=== PATIENT | male | born 1990 | race Caucasian/White ===

== ENCOUNTER 2018-11-27 17:22 | Inpatient (IN) ==
[2018-11-27] MEDS ORDERED: NICODERM PATCH TD PRN (17:28)
[2018-11-27] MEDS ORDERED: ZOFRAN IM PRN (17:28)
[2018-11-27] MEDS ORDERED: TYLENOL PO PRN (17:28)
[2018-11-27] MEDS ORDERED: MAALOX PLUS LIQUID PO PRN (17:28)
[2018-11-27] MEDS ORDERED: PHENOBARBITAL IV PRN (17:28)
[2018-11-27] MEDS ORDERED: NICOTINE GUM BUCCAL PRN (17:28)
[2018-11-27] MEDS ORDERED: SENOKOT PO PRN (17:28)
[2018-11-27] MEDS ORDERED: DULCOLAX PR PRN (17:28)
[2018-11-27] MEDS ORDERED: TUBERSOL ID ONE (17:28)
[2018-11-27] MEDS ORDERED: IMODIUM PO PRN ×2 (17:28)
[2018-11-27] MEDS ORDERED: DESYREL PO PRN (17:28)
[2018-11-27] MEDS ORDERED: D5W 1,000 ML IV PRN (17:28)
[2018-11-27 17:56] LABS: HEMATOCRIT 35.2 % (42.0-52.0); HEMOGLOBIN 12.2 g/dL (14.0-18.0); MCHC 34.7 g/dL (33-37); MCV 83.8 FL (81-99); MPV 9.8 FL (7.4-10.4); RBC 4.2 XMIL (4.7-6.1); RDW 12.3 % (11.5-14.5); WBC 5.87 X1000 (4.8-10.8)
[2018-11-27] MEDS ORDERED: SINEMET 25/100 PO PRN (18:07)
[2018-11-27] MEDS ORDERED: ATARAX PO PRN (18:07)
[2018-11-27] MEDS ORDERED: BENTYL PO PRN (18:07)
[2018-11-27 18:11] LABS: INR 1.01; PROTIME 13.8 Seconds (11.0-16.0)
[2018-11-27 18:14] LABS: AMYLASE 75 U/L (20-200); LIPASE 15 U/L (13-60)
[2018-11-27 18:18] LABS: AGAP 11; ALBUMIN 4.2 g/dL (3.5-5.0); ALKALINE PHOSPHATASE 71 U/L (32-122); BUN 11 mg/dL (8-22); CALCIUM 8.8 mg/dL (8.8-10.2); CHLORIDE 96 mmol/L (98-107); COSMO 271; CREATININE 0.6 mg/dL (0.7-1.2); ESTIMATED GFR > 60; GLUCOSE 93 mg/dL (70-104); GOT 13 U/L (10-34); GPT 9 U/L (10-44); POTASSIUM 4.3 mmol/L (3.5-5.1); SODIUM 136 mmol/L (136-145); TCO2 29 mmol/L (25-35); TOTAL PROTEIN 7.3 g/dL (6.3-8.3)
[2018-11-27] MEDS: ZOFRAN IV PRN (18:31)
[2018-11-27] MEDS: ROBAXIN PO PRN (18:31)
[2018-11-27] MEDS: LIBRIUM PO PRN ×2 (18:31→22:28)
[2018-11-27 19:32] LABS: URINE SOURCE VOIDED
[2018-11-27 19:36] LABS: UR AMPHETAMINES QUAL NONE DETECTED (NONE DETECT); UR BARBITUATES QUAL NONE DETECTED (NONE DETECT); UR BENZODIAZEPIN QUAL PRESUMPTIVE POSITIVE (NONE DETECT); UR CANNABINOIDS QUAL NONE DETECTED (NONE DETECT); UR COCAINE QUAL NONE DETECTED (NONE DETECT); UR METHADONE QUAL NONE DETECTED (NONE DETECT); UR METHAMPHETAMINE QUAL NONE DETECTED (NONE DETECT); UR OPIATES QUAL NONE DETECTED (NONE DETECT); UR OXYCODONE QUAL NONE DETECTED (NONE DETECT); UR PCP QUAL NONE DETECTED (NONE DETECT); UR PROPOXYPHENE QUAL NONE DETECTED (NONE DETECT); UR TCA QUAL NONE DETECTED (NONE DETECT)
[2018-11-27 19:39] LABS: BILIRUBIN URINE NEGATIVE (NEGATIVE); BLOOD URINE NEGATIVE (NEGATIVE); GLUCOSE URINE NEGATIVE (NEGATIVE); KETONE URINE TRACE mg/dL (NEGATIVE); PH URINE 6.5
[2018-11-27 19:40] LABS: CLARITY CLEAR (CLEAR); COLOR YELLOW; LEUKOCYTES URINE TRACE (NEGATIVE); NITRITE URINE NEGATIVE (NEGATIVE); PROTEIN URINE NEGATIVE (NEGATIVE); UROBILINOGEN URINE NORMAL
--- NOTE | 2018-11-27 19:41 | HISTORY AND PHYSICAL ---
CHIEF COMPLAINT: Nausea and vomiting. HISTORY OF PRESENT ILLNESS: The patient is a 28-year-old male who presented to the hospital with nausea, vomiting, abdominal pain, myalgias, paresthesias, and paroxysmal sweating. The patient notes he has been on Suboxone and been doing well actually for the past 3 years. He has not been weaning down. He is undergoing a divorce. He has moved from [place] back to [place]. Unfortunately during the move, he was not able to find a provider to continue taking Suboxone, and therefore has been out. Since being out, he started to go into withdrawal symptoms and has been abusing heroin to alleviate said symptoms. SOCIAL HISTORY: Patient is getting . He is unemployed. Lives at home in [place]. PAST MEDICAL HISTORY: Asthma as a child. No current active medical problems. ALLERGIES: None. MEDICATIONS: None. REVIEW OF SYSTEMS: CINA score is 27 secondary to nausea, vomiting, dry heaves, frequent panic attacks, paresthesias, paroxysmal sweating, diarrhea, and abdominal cramping. Denies any fevers, but has been having cold shaking chills at times. He is unable to sit still, frequently moving about. Denies any chest pain, palpitations. Denies headaches, blurred vision, change in vision. Denies any focalized numbness, tingling, weakness in extremities. SUBSTANCE ABUSE HISTORY: The patient was in [facility] in 2010. Relapsed almost immediately. Was in [facility] in 2012. Remained sober for approximately 11 months and then relapsed. He was in [facility] in 2016. He stayed on Suboxone for 3 years, which is the longest period of sobriety that he has had. Unfortunately as noted above, he has been out of Suboxone and therefore has relapsed. Started alcohol at 14. Currently rarely drinks. Started marijuana at 17. Rarely uses. Started depressants at 22. Has not used any with regularity. Started meth at 25, and only use 4 or 5 times in his lifetime. Tried hallucinogens once. Started opiates at 17. Has been sober as noted on Suboxone until recently. Since that time, he has been abusing heroin. Started smoking at 17 and currently smokes half a pack a day. FAMILY HISTORY: Noncontributory. PHYSICAL EXAMINATION: VITAL SIGNS: Reviewed, stable. The patient is awake, alert, and oriented. He is in no current respiratory distress. He is very pleasant to talk with but is somewhat ill-appearing due to withdrawal symptoms. He is frequently moving about and is fidgeting. HEENT: Normocephalic. NECK: Supple. CARDIOVASCULAR: Regular rate. No murmurs. CHEST: Clear, nonlabored. ABDOMEN: Soft, nondistended, nontender. EXTREMITIES: Moves all extremities. NEUROLOGIC: No focal changes. SKIN: Warm, dry. No rashes. ASSESSMENT: 1. Abdominal pain. 2. Myalgias. 3. Paresthesias. 4. Paroxysmal sweating. 5. Opiate abuse withdrawal and stabilization. PLAN: We will continue patient in the hospital. We will place him on Suboxone, begin counseling. Discussed with patient that we will attempt to wean him down; however, if he begins to have worsening thoughts of use and abuse, then we will need to stabilize him and discharge home on Suboxone. cc: Ankit Sheikh MD
[2018-11-27] MEDS: SEROQUEL PO PRN (22:28)
[2018-11-28] MEDS: SUBOXONE 2 MG/0.5 MG FILM SL SCH ×2 (06:36→18:09)
[2018-11-28] MEDS: PROTONIX PO SCH (06:36)
[2018-11-28] MEDS: ROBAXIN PO PRN ×2 (08:24→16:34)
[2018-11-28] MEDS: LIBRIUM PO PRN ×4 (08:24→21:44)
[2018-11-28] MEDS: THERA M PLUS PO SCH (08:24)
[2018-11-28] MEDS: ZOFRAN IV PRN ×2 (08:25→16:34)
[2018-11-28] MEDS: VITAMIN B-1 PO SCH (08:25)
[2018-11-28] MEDS: FOLIC ACID PO SCH (08:25)
[2018-11-28] MEDS ORDERED: SUBUTEX SL ONE (08:34)
[2018-11-28] MEDS: MOTRIN PO PRN ×2 (12:25→21:44)
--- NOTE | 2018-11-28 21:36 | PROGRESS NOTE ---
DATE: 11/28/2018 SUBJECTIVE: Patient notes that he is feeling okay. Does not think that the Suboxone is enough. He does not think it is making any worse though. PHYSICAL EXAMINATION: Vital Signs: Reviewed. Temp 97.9 degrees, pulse 76, respiratory 18, BP stable. General: Patient is awake, alert. He is in no current respiratory distress. Pleasant to talk with. HEENT: Normocephalic. Neck: Supple. Cardiovascular: Regular rate. No murmurs. Chest: Clear, nonlabored. Abdomen: Soft, nondistended, nontender. Extremities: Moves all extremities. ASSESSMENT: 1. Nausea, vomiting, abdominal pain. 2. Myalgias. 3. Paresthesias. 4. Paroxysmal sweating. 5. Opiate abuse withdrawal and stabilization. PLAN: We will continue patient in the hospital. We will give him 1 dose of Subutex today and see how this helps. If it is better, we will switch him to Subutex. We will continue to follow. Continue counseling. cc: Ankit Sheikh MD
[2018-11-28] MEDS: SEROQUEL PO PRN (21:44)
[2018-11-29] MEDS: ROBAXIN PO PRN ×3 (01:26→17:54)
[2018-11-29] MEDS: ZOFRAN IV PRN ×3 (01:26→17:59)
[2018-11-29] MEDS: PROTONIX PO SCH (06:21)
[2018-11-29] MEDS: SUBOXONE 2 MG/0.5 MG FILM SL SCH (06:22)
[2018-11-29] MEDS: LIBRIUM PO PRN ×4 (08:33→22:29)
[2018-11-29] MEDS: MOTRIN PO PRN ×2 (08:33→17:54)
[2018-11-29] MEDS: FOLIC ACID PO SCH (08:33)
[2018-11-29] MEDS: VITAMIN B-1 PO SCH (08:33)
[2018-11-29] MEDS: THERA M PLUS PO SCH (08:33)
[2018-11-29] MEDS ORDERED: SUBUTEX SL SCH (11:45)
[2018-11-29] MEDS ORDERED: SUBUTEX SL ONE (13:15)
[2018-11-29] MEDS: SEROQUEL PO PRN (21:44)
[2018-11-29] MEDS: SUBUTEX SL SCH (21:44)
[2018-11-30] MEDS: PROTONIX PO SCH (06:24)
[2018-11-30] MEDS: SUBUTEX SL SCH ×3 (06:24→21:32)
--- NOTE | 2018-11-30 07:20 | PROGRESS NOTE ---
DATE: 11/30/2018 SUBJECTIVE: The patient notes that he still feels terrible. Unsure if the Suboxone is making him feel worse. Still having muscle aches, sweating. PHYSICAL EXAMINATION: Vital Signs: Reviewed and stable. General: He is awake, alert. He is in no distress otherwise. HEENT: Normocephalic. Neck: Supple. Cardiovascular: Regular rate. No murmurs chest clear nonlabored. Abdomen: Soft, nondistended. Extremities: He moves all extremities. ASSESSMENT: 1. Nausea and vomiting. 2. Abdominal pain. 3. Paresthesias. 4. Paroxysmal sweating. 5. Continued opiate withdrawal. PLAN: We will switch him from Suboxone to Subutex. It appears though he may have had fentanyl in his heroin, which would be precipitated by Suboxone. We will continue to follow. cc: Ankit Sheikh MD MTDD
[2018-11-30] MEDS: VITAMIN B-1 PO SCH (08:09)
[2018-11-30] MEDS: THERA M PLUS PO SCH (08:09)
[2018-11-30] MEDS: FOLIC ACID PO SCH (08:10)
[2018-11-30] MEDS: ZOFRAN IV PRN ×2 (08:23→21:31)
[2018-11-30] MEDS: LIBRIUM PO PRN ×4 (08:23→21:31)
[2018-11-30] MEDS: ROBAXIN PO PRN ×3 (08:24→21:31)
[2018-11-30] MEDS: MOTRIN PO PRN ×2 (08:24→16:24)
[2018-11-30] MEDS: ZOFRAN ODT PO PRN (16:24)
[2018-11-30] MEDS: SEROQUEL PO PRN (21:31)
[2018-12-01] MEDS: PROTONIX PO SCH (06:40)
[2018-12-01] MEDS: SUBUTEX SL SCH ×3 (06:41→22:03)
[2018-12-01] MEDS: FOLIC ACID PO SCH (08:43)
[2018-12-01] MEDS: THERA M PLUS PO SCH (08:43)
[2018-12-01] MEDS: ROBAXIN PO PRN ×2 (08:43→22:03)
[2018-12-01] MEDS: LIBRIUM PO PRN ×3 (08:43→22:03)
[2018-12-01] MEDS: VITAMIN B-1 PO SCH (08:43)
[2018-12-01] MEDS: MOTRIN PO PRN ×2 (08:43→22:03)
[2018-12-01] MEDS: ZOFRAN IV PRN (08:44)
--- NOTE | 2018-12-01 08:51 | PROGRESS NOTE ---
DATE: 11/30/2018 SUBJECTIVE: The patient notes that the Subutex made him feel a lot better. His withdrawal symptoms have improved. He is no longer having nausea or vomiting. His abdominal pain have resolved. His sweating and tremors have all but resolved. PHYSICAL EXAMINATION: Vital Signs: Reviewed. Temperature 97.8 degrees, pulse 82, respiratory 18, blood pressure 110/85. General: Patient is awake, alert, currently in no distress. His color is much improved. He is no longer sweating. He is able to have a full conversation. HEENT: Normocephalic. Neck: Supple. Cardiovascular: Regular rate. No murmurs. Chest: Clear, nonlabored. Abdomen: Soft, nondistended. Extremities: Moves all extremities. Neurologic: No changes. ASSESSMENT: 1. Nausea and vomiting. 2. Abdominal pain. 3. Myalgias. 4. Tremors. 5. Paresthesias. 6. Paroxysmal sweating. 7. Opiate abuse withdrawal and stabilization from most likely carfentanil. PLAN: We will continue Subutex. He needs to stay off Suboxone for at least 30 to 60 days to allow all the carfentanil to get out of his system. We will continue to follow. We will begin attempting to adjust his Subutex dosing tomorrow. cc: Ankit Sheikh MD
--- NOTE | 2018-12-01 21:49 | PROGRESS NOTE ---
DATE: 12/01/2018 SUBJECTIVE: Patient notes that overall he is starting to feel a little bit better. PHYSICAL EXAMINATION: Vital Signs: Temperature 97.7 degrees, pulse 80, respiratory 20, BP 102/62. General: Patient is awake, alert, currently in no distress. HEENT: Normocephalic. Neck: Supple. Cardiovascular: Regular rate. Chest: Clear. Abdomen: Soft, nondistended. Extremities: Moves all extremities. ASSESSMENT: 1. Nausea, vomiting. 2. Abdominal pain. 3. Myalgias. 4. Paresthesias. 5. Paroxysmal sweating. 6. Opiate abuse, withdrawal and stabilization. PLAN: Overall, patient is improving. We will continue the 4 mg 3 times a day today. Hopefully, he will be able to discharge home tomorrow if he remains stable. cc: Ankit Sheikh MD
[2018-12-01] MEDS: ZOFRAN ODT PO PRN (22:02)
[2018-12-01] MEDS: SEROQUEL PO PRN (22:03)
[2018-12-02] MEDS: SUBUTEX SL SCH (06:07)
[2018-12-02] MEDS: PROTONIX PO SCH (06:07)
[2018-12-02 07:52] VITALS: BP 115/75
[2018-12-02] MEDS: FOLIC ACID PO SCH (10:00)
[2018-12-02] MEDS: THERA M PLUS PO SCH (10:00)
[2018-12-02] MEDS: VITAMIN B-1 PO SCH (10:00)
--- NOTE | 2018-12-02 15:34 | DISCHARGE SUMMARY ---
ADMISSION DATE: 11/27/2018 DISCHARGE DATE: 12/02/2018 DISCHARGE DIAGNOSES: 1. Nausea and vomiting. 2. Abdominal pain. 3. Myalgias. 4. Paresthesias. 5. Paroxysmal sweating. 6. Opiate abuse, withdrawal, and stabilization. CONSULTATIONS: None. PROCEDURES: None. BRIEF HOSPITAL COURSE: The patient is a 28-year-old female who presented to [facility] program secondary to nausea, vomiting, abdominal pain, tremors, myalgias. The patient notes he has been abusing IV heroin. He has been attempting to stop but his withdrawal symptoms become too severe. The patient was admitted to the hospital, placed on Suboxone, and then subsequently switched to Subutex as he apparently has had carfentanil in his heroin and his Suboxone made him worse and precipitated his withdrawal. His Subutex was increased to 4 three times a day. After which time, his withdrawal symptoms of paresthesias, sweating, and tremors began to improve. On discharge he is awake, alert. He is in no distress. Overall he is feeling much better. DISPOSITION: Patient will be discharged home. Discussed with him that he needs to avoid all persons, places, situations which he has been using and abusing in the past. He needs outpatient life counseling as well as drug counseling. He will continue Subutex for at least a month to prevent his withdrawal. Discussed with him how to wean down Subutex to hopefully 4 mg twice a day instead of three times a day. cc: Ankit Sheikh MD
== END 2018-12-02 12:05 | disposition home or self-care (01) | DRG 897 ==
LOC: P.MEDSURG 17:22
PROVIDERS: ADMIT Family Medicine; ATTEND Family Medicine
CPT/HCPCS: 80053; 80104; 80301; 80305; 80307; 80320; 82055; 82150; 83690; 85027; 85610; 86580; A9270; G0431; G0434; G0477; G0480; G6040; J2405

== ENCOUNTER 2019-06-01 18:55 | Inpatient (IN) ==
[2019-06-01] MEDS ORDERED: CLINDAMYCIN 600 MG/D5W 600 MG/50 ML IVPB IV ONE (19:28)
[2019-06-01 20:15] LABS: AGAP 11; ALB/GLOB RATIO 1.3; ALBUMIN 4.1 g/dL (3.5-5.0); ALKALINE PHOSPHATASE 89 U/L (32-122); BUN 11 mg/dL (8-22); CALCIUM 9.2 mg/dL (8.8-10.2); CHLORIDE 101 mmol/L (98-107); COSMO 274; CREATININE 0.8 mg/dL (0.7-1.2); ESTIMATED GFR > 60; GLUCOSE 108 mg/dL (70-104); GOT 14 U/L (10-34); GPT 16 U/L (10-44); POTASSIUM 4.8 mmol/L (3.5-5.1); SODIUM 137 mmol/L (136-145); TCO2 25 mmol/L (25-35); TOTAL BILIRUBIN < 0.15 mg/dL (0.20-1.00); TOTAL PROTEIN 7.2 g/dL (6.3-8.3)
[2019-06-01] MEDS ORDERED: TORADOL IV ONE (20:20)
--- NOTE | 2019-06-01 20:23 | PROVIDER DOCUMENTATION ---
HPI-Rash/Wound/ReCheck - General Chief Complaint: Abscess Stated Complaint: RECHECK ABCESS/WORSE Time Seen by Provider: 06/01/19 19:11 Source: patient Allergies/Adverse Reactions: Allergies Allergy/AdvReac Type Severity Reaction Status Date / Time No Known Allergies Allergy Verified 06/01/19 19:55 Home Medications: Home Medication List Medication Instructions Recorded Confirmed Last Taken Type Ibuprofen [Motrin] 600 mg PO Q6-8H PRN PRN #30 tab 05/30/19 06/01/19 06/01/19 06:00 Rx Sulfamethoxazole/Trimethoprim 2 ea PO BID #40 tab 05/30/19 06/01/19 06/01/19 Rx [Bactrim Ds Tablet] - History of Present Illness-Dermatology Nature of Presenting Problem: Patient is a 29 yowm who complains of an abscess to right AC region. States he was here on and began taking Bactrim but the pain and erythema has worsened and erythema is no spreading down forearm. Denies fever or any other complaints. Pt non-toxic in appearance. Review of Systems - Adult - REVIEW OF SYSTEMS - ADULT Constitutional: reports: no symptoms reported Eyes: reports: no symptoms reported Ears, Nose, Mouth & Throat: reports: no symptoms reported Cardiovascular: reports: no symptoms reported Respiratory: reports: no symptoms reported Gastrointestinal: reports: no symptoms reported Genitourinary: reports: no symptoms reported Musculoskeletal: reports: no symptoms reported Integumentary: reports: see HPI Neurological: reports: no symptoms reported Psychiatric: reports: no symptoms reported Endocrine: reports: no symptoms reported Hematologic/Lymphatic: reports: no symptoms reported Allergic/Immunologic: reports: no symptoms reported All Other Systems: Reviewed and Negative Past History - Adult - PAST MEDICAL HISTORY-ADULT Review of Records: reports: Nursing Assessment Review, Medications Reviewed, Social history reviewed & non-contributory. Major Childhood Illnesses: reports: denies history Cardiovascular: reports: denies history Respiratory: reports: denies history Gastrointestinal: reports: denies history Obstetrical/Gynecological: reports: denies history Genitourinary: reports: denies history Musculoskeletal: reports: denies history Neurological: reports: denies history Endocrine/Immune: reports: denies history Other Conditions: reports: denies history - PRIOR SURGERIES/PROCEDURES Surgical/Procedure History: reports: orthopedic (extremity) (hand) - IMMUNIZATION STATUS Childhood Immunizations: See Nurse Assessment Flu Vaccine: See Nurse Assessment - FAMILY HISTORY Family History: reviewed, not pertinent - SOCIAL HISTORY Smoking: cigarettes, greater than 1 pack/day Substance Use: amphetamines (IV) Physical Exam-General - PHYSICAL EXAM-ADULT Initial Vital Signs Reviewed: Yes - CONSTITUTIONAL General Appearance: alert, no apparent distress. negative: lethargic, slow to respond - EYES Eyes: PERRL/EOMI - HEAD, EARS, NOSE, MOUTH & THROAT HENMT: normocephalic/atraumatic - NECK Neck: full range of motion, supple, normal inspection - RESPIRATORY Respiratory: chest non-tender, lungs clear, normal breath sounds, no pleuratic chest pain, no respiratory distress, no accessory muscle use - CARDIOVASCULAR Cardiovascular: normal peripheral pulses, no gallop, no murmur - MUSCULOSKELETAL Extremity: normal capillary refill, erythema (right forearm and AC region), swelling (right AC region and right forearm, mildly fluctuent abscess noted to AC region, measures the circumference of a half dollar.). negative: deformity, pulse deficit, slow capillary refill Peripheral Pulses: radial (R): 3+ - SKIN Integumentary: normal color, warm/dry. negative: cyanosis, diaphoresis, jaundice, mottled, pallor - NEUROLOGIC Neurologic: grossly normal, no motor/sensory deficits - PSYCHIATRIC Psych/Mental Status: normal mood/affect, normal thought content, normal thought process, oriented x 3 Progress - PLAN OF CARE/RESULTS Progress/Plan/Lab Results: Vital Signs - 8 hr 06/01/19 19:02 Temperature 99.8 F H Pulse Rate 75 Respiratory Rate 20 Blood Pressure 126/80 O2 Sat by Pulse Oximetry 99 Laboratory Results - last 24 hr 06/01/19 06/01/19 19:40 19:40 WBC 18.99 H RBC 4.72 Hgb 12.9 L Hct 39.2 L MCV 83.1 MCH 27.3 MCHC 32.9 L RDW Std Deviation 13.5 Plt Count 290 MPV 10.3 Neut % (Auto) 78.0 H Lymph % (Auto) 14.3 L [place] % (Auto) 6.4 Eos % (Auto) 1.1 Baso % (Auto) 0.2 Neut # (Auto) 14.83 H Lymph # (Auto) 2.71 [place] # (Auto) 1.21 H Eos # (Auto) 0.21 Baso # (Auto) 0.03 Sodium 137 Potassium 4.8 Chloride 101 Carbon Dioxide 25 Anion Gap 11 BUN 11 Creatinine 0.8 Estimated GFR/1.73 m2 > 60 BUN/Creatinine Ratio 14 Glucose 108 H Calculated Osmolality 274 Calcium 9.2 Total Bilirubin < 0.15 L AST 14 ALT 16 Alkaline Phosphatase 89 Total Protein 7.2 Albumin 4.1 Globulin 3.1 Albumin/Globulin Ratio 1.3 Orders Category Date Time Status BLOOD CULTURE [BLDCUL] Stat Lab 06/01/19 19:40 Results CBC WITH DIFF [HEME] Stat Lab 06/01/19 19:40 Completed COMPREHENSIVE METABOLIC PANEL [CHEM] Stat Lab 06/01/19 19:40 Completed Clindamycin 600 mg/D5w Med 06/01/19 19:28 Discontinued 600 mg in 50 ml IV NOW Ketorolac [Toradol] Med 06/01/19 20:20 Discontinued 15 mg IV NOW ONE Pharmacy Order [Vancomycin IV Per Pharmacy] Med 06/01/19 21:00 Ordered 1 each MISC DIRECTED Result Diagrams: 06/01/19 19:40 06/01/19 19:40 - REASSESSMENT Reassessment #1 Time Reassessed: 20:48 Status: other (Admitting HPS paged.) Reassessment #2 Time Reassessed: 21:02 Status: improving (Pain improved with Toradol. Pt in agreement with admission plan.) - CONSULTS/PCP/HOSPITALIST Notification #1 *Consult/PCP/Hospitalist*: Dr. Soares Time Discussed: 21:06 Reason/Comments: admission- right AC cellulitis/abscess Consult Disposition: Admit Departure - Departure Date of Disposition Decision: 06/01/19 Time of Disposition Decision: 21:07 DIAGNOSIS: Abscess Disposition: ADMITTED INPATIENT 09 Certified Medical Emergency: Emergent Condition: Stable Referrals and Follow-Ups: None,PCP [Primary Care Provider] - - Critical Care Note This patient required my direct & personal management of CC.: No Attestation - Physician/ DANIAL Attestation Patient care was provided by Advanced Practice Provider:: Yes Advanced Practice Provider:: Crescencio Mart Advanced Practice Provider documentation review:: The Mid-level provider documentation, treatment plan and medical decision making was reviewed by the physician who agrees with all treatment and medical decision making by the P. The physician spent face to face time with patient:: No Advanced Practice Provider documentation review:: Supervising physician onsite and consulted in the evaluation and care of this patient. The physician did not have a face to face encounter with the patient.
[2019-06-01 20:34] LABS: BASO# 0.03 X1000 (0.0-0.2); BASO% 0.2 % (0.0-0.8); EOS# 0.21 X1000 (0.0-0.7); EOS% 1.1 % (0.0-10.0); HEMATOCRIT 39.2 % (42.0-52.0); HEMOGLOBIN 12.9 g/dL (14.0-18.0); LYMPH# 2.71 X1000 (1.2-3.4); LYMPH% 14.3 % (20.5-51.1); MCH 27.3 PG (27-31); MCHC 32.9 g/dL (33-37); MCV 83.1 FL (81-99); MONO# 1.21 X1000 (0.11-0.59); MONO% 6.4 % (1.7-9.3); MPV 10.3 FL (7.4-10.4); NEUT# 14.83 X1000 (1.4-6.5); PLT 290 X1000 (130-400); RBC 4.72 XMIL (4.7-6.1); RDW 13.5 % (11.5-14.5); WBC 18.99 X1000 (4.8-10.8)
[2019-06-01] MEDS ORDERED: VANCOMYCIN IV PER PHARMACY MISC SCH ×2 (21:00→22:45)
[2019-06-01] MEDS ORDERED: VANCOMYCIN 2,150 MG in NS 500 ML IV ONE (22:00)
[2019-06-01] MEDS ORDERED: NS 1,000 ML IV SCH (22:45)
[2019-06-01] MEDS: NORCO-10 PO PRN (23:22)
[2019-06-02 01:02] LABS: INR 0.99; PROTIME 13.2 Seconds (11.0-16.0)
[2019-06-02 01:03] LABS: PTT 27.3 Seconds (22.3-41.8)
[2019-06-02] MEDS: ZOSYN 3.375 GM in NS 50 ML IV SCH ×4 (01:05→18:37)
[2019-06-02] MEDS: NORCO-10 PO PRN ×5 (03:25→23:02)
--- NOTE | 2019-06-02 07:17 | HISTORY AND PHYSICAL ---
CHIEF COMPLAINT: Abscess in the left elbow region which has been going on for about 2 weeks. HISTORY OF PRESENT ILLNESS: Mr. Sloan uMrray is a 29-year-old male who has a history of substance abuse and presents to the hospital because of abscess involving the left elbow region, and this has been ongoing for about 2 weeks. The patient tried to inject intravenous drug (amphetamine) at this site. He describes having fever as well as chills. The patient was seen and evaluated in the ER, was found to have a white count of about 18.99. The patient will be admitted to the floor now for further management. PAST MEDICAL HISTORY: Substance abuse. SOCIAL HISTORY: He smokes cigarettes. He does not drink alcohol. Use drugs.Allergies: No known medication allergies. FAMILY HISTORY: Positive for diabetes. PAST SURGICAL HISTORY: He has had surgery for fracture involving the right hand. MEDICATIONS: None. REVIEW OF SYSTEMS: Constitutional: Has fever. 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 Eyes: No blurred vision. ENT: No sinus problems or hearing loss. Cardiovascular: Has chest pain. Respiratory: Has cough. GI: He has nausea with vomiting. No abdominal pains. : No dysuria. Musculoskeletal: No joint pains. Dermatology: As in history of present illness. Endocrine: No thyroid disease or diabetes. Psychiatric: He has anxiety. PHYSICAL EXAMINATION: VITAL SIGNS: Temperature is 99.1 degrees, pulse 106, respiratory rate is 22, blood pressure is 118/71, oxygen saturation is 100%. HEENT: Atraumatic, normocephalic. He is anicteric. Extraocular movements intact. No oral lesions noted. NECK: No lymphadenopathy or thyromegaly. CARDIOVASCULAR: S1, S2. RESPIRATORY: Has evidence of good air entry bilaterally. ABDOMEN: Soft, nontender. No masses felt. EXTREMITIES: The patient does have a large abscess in the region of the left elbow. CENTRAL NERVOUS SYSTEM: No obvious focal deficit noted. LABORATORY DATA: WBC is 18.99, hematocrit is 39.2 with a platelet count of 290,000. INR is 0.99. Sodium is 137, potassium 4.8, chloride is 101, bicarb 25, BUN is 11, creatinine 0.8, glucose is 108. ASSESSMENT AND PLAN: 1. Large abscess left elbow region. Obtain 2 sets of blood cultures. Place patient on empiric antibiotics. Consult with Surgery for incision and drainage. 2. History of substance abuse. Aware. Counseling regarding abstinence. 3. Anemia. Check iron studies, B12 and folate level. 4. Leukocytosis secondary to abscess. 5. Deep vein thrombosis prophylaxis. Sequential compression devices. 6. Gastrointestinal prophylaxis. Proton pump inhibitor. cc: Curtis Almeida MD MTDD
--- NOTE | 2019-06-02 07:56 | Diag Imaging Result Doc PS360 ---
CHEST-1 VIEW - 06/01/2019 INDICATION: Sepsis protocol COMPARISON: 08/15/2014 FINDINGS: The lungs are normally expanded and clear. Heart size and mediastinal contours are normal. No pneumothorax or pleural effusion. IMPRESSION: Negative exam. Electronically signed by Eugene Li 06/02/2019 7:53 AM
[2019-06-02] MEDS: PROTONIX PO SCH (08:09)
--- NOTE | 2019-06-02 08:37 | CONSULTATION ---
DATE OF CONSULTATION: 06/02/2019 HISTORY OF PRESENT ILLNESS: Mr. Murray is a 29-year-old, white male, who was admitted during the evening with soft tissue abscess involving the antecubital fossa on the left. Evidently, he was seen in the emergency room on , was given p.o. antibiotics, but the swelling, pain, and redness worsened, and he represented to the emergency department last night. We were asked to see him because of his soft tissue infection. PAST MEDICAL HISTORY: Orthopedic surgery on his hand. MEDICATIONS: Motrin and Bactrim. ALLERGIES: No known drug allergies. SOCIAL HISTORY: He is a smoker. REVIEW OF SYSTEMS: A 14-point review of systems was performed and was essentially negative, except for the history of present illness. FAMILY HISTORY: Noncontributory, but reviewed with the patient. PHYSICAL EXAMINATION: General: Mr. Murray is a young, white male. Good weight. He is awake, cooperative. Vital Signs: Temperature is 99.8 degrees, pulse 75, blood pressure 126/80, O2 saturation 99%. He is 160 pounds, 6 feet 1 inch. HEENT: No jaundice. No oral lesions. Satisfactory dentition. Neck: No cervical or supraclavicular lymphadenopathy. Heart: Regular rate. Lungs: Clear to auscultation and percussion bilaterally. Abdomen: Flat, without tenderness. Extremities: He has palpable peripheral pulses. He has swelling, redness, and what appears to be fluctuance and purulence at the antecubital fossa, left upper extremity. Neurological: There are no focal deficits. LABORATORY DATA: His white blood cell count is 19, hematocrit is 39%. Electrolytes are within normal limits. IMPRESSION: Soft tissue abscess, left upper extremity. PLAN: Incision and drainage, left upper extremity abscess today. I have discussed the procedure in detail with him, including risks of bleeding and infection. He understands that he will have an open wound that he will have to care for. cc: Kimberly Jones MD
[2019-06-02 09:18] LABS: URINE SOURCE CLEAN CATCH
[2019-06-02 09:25] LABS: BILIRUBIN URINE NEGATIVE (NEGATIVE); BLOOD URINE TRACE (NEGATIVE); COLOR YELLOW; GLUCOSE URINE NEGATIVE (NEGATIVE); KETONE URINE NEGATIVE (NEGATIVE); LEUKOCYTES URINE NEGATIVE (NEGATIVE); NITRITE URINE NEGATIVE (NEGATIVE); PROTEIN URINE TRACE mg/dL (NEGATIVE); SP GRAVITY URINE 1.022; TURBIDITY URINE CLEAR (CLEAR); UROBILINOGEN URINE NORMAL (NORMAL)
[2019-06-02 09:27] LABS: UR EPITHELIAL CELLS <10 /HPF (<10); URINE BACTERIA NEGATIVE /HPF; URINE WBC <10 /HPF (<10)
[2019-06-02] MEDS ORDERED: FENTANYL ONE (10:04)
[2019-06-02] MEDS ORDERED: DIPRIVAN 1% ONE (10:05)
[2019-06-02 10:38] LABS: UR AMPHETAMINES QUAL NONE DETECTED (NONE DETECT); UR BARBITUATES QUAL NONE DETECTED (NONE DETECT); UR BENZODIAZEPIN QUAL NONE DETECTED (NONE DETECT); UR CANNABINOIDS QUAL NONE DETECTED (NONE DETECT); UR COCAINE QUAL NONE DETECTED (NONE DETECT); UR METHADONE QUAL NONE DETECTED (NONE DETECT); UR OPIATES QUAL PRESUMPTIVE POSITIVE (NONE DETECT); UR OXYCODONE QUAL NONE DETECTED (NONE DETECT); UR PCP QUAL NONE DETECTED (NONE DETECT)
--- NOTE | 2019-06-02 10:44 | PROGRESS NOTE ---
DATE: 06/02/2019 SUBJECTIVE: I have seen and examined Mr. Murray today. He refers to be doing a little better, but he is still in a lot of pain. He is pending I and D today with Dr. Jones. Briefly, Mr. Murray is a 29-year-old, IV drug user. He said he used IV methamphetamine recently, but he apparently missed the vein, shooting into the skin. Subsequently, the area started to get swollen. He came to the emergency room 3 days ago, was given Bactrim, but this did not help, so he came back yesterday and has been admitted. OBJECTIVE: Vital Signs: Blood pressure is 126/86, pulse of 108, respirations 20, temperature is 98.2 degrees. General: Mr. Murray is a 29-year-old, gentleman. He is in bed. No distress. HEENT: Mucosa is pink and moist. Anicteric. Acyanotic. Neck: Supple. Chest: Good air entry bilaterally. There are no crepitations, no rhonchi. Cardiovascular: Regular rate and rhythm. No murmurs, no rubs, no gallops. GI: Abdomen is soft, nontender. Bowel sounds present. Extremities: No pedal edema. Distal pulses are present. PRODUCT DEVELOPMENT CONSULTANT: The patient is awake, alert, and oriented. The left antecubital fossa medially is remarkably swollen. There is an entry point which looks like it has remarkably pus. The entire AC region is very swollen, extending all the way to the distal forearm. The center of the swelling has minimal whitish coloration, which is suggestive of possible area of impending rupture, and it is fluctuant. LABORATORY DATA: Laboratory data from yesterday has been reviewed. MEDICATIONS: The patient is currently on vancomycin and Zosyn. ASSESSMENT: 1. Sepsis syndrome secondary to skin and soft tissue infection. 2. Left antecubital fossa cellulitis with abscess formation. The patient is pending incision and drainage. 3. Intravenous drug use and abuse. The patient has been counseled. 4. Clinical volume depletion. The patient is on intravenous fluids. cc: Tyron Wayne MD
[2019-06-02] MEDS ORDERED: XYLOCAINE-MPF 2% ONE (10:50)
[2019-06-02] MEDS ORDERED: QUELICIN (DOSE) ONE (10:50)
[2019-06-02] MEDS: DILAUDID ONE ×3 (10:52→11:02)
[2019-06-02] MEDS: MORPHINE IV PRN ×3 (11:33→21:04)
[2019-06-02] MEDS: VANCOMYCIN 1,600 MG in NS 250 ML IV SCH ×2 (11:38→21:17)
[2019-06-02] MEDS: NICODERM PATCH TD SCH (12:43)
--- NOTE | 2019-06-02 14:32 | OPERATIVE NOTE ---
PROCEDURE DATE: 06/02/2019 PREOPERATIVE DIAGNOSIS: Soft tissue abscess antecubital fossa left upper extremity. POSTOPERATIVE DIAGNOSIS: Soft tissue abscess antecubital fossa left upper extremity. PRINCIPAL PROCEDURE: Incision and drainage of soft tissue abscess left upper extremity. SURGEON: Kimberly Jones MD. ANESTHESIA: General. ESTIMATED BLOOD LOSS: 10 mL. DRAINS: None. INDICATIONS: Sloan Murray 29-year-old white male who has developed a soft tissue abscess at the antecubital fossa and proximal left forearm with surrounding cellulitis. It is swollen and incision and drainage was recommended. FINDINGS: He had purulence in the soft tissue at the antecubital fossa and just distally left arm. We drained the abscess cavity and made sure that it was drained completely and packed it open with iodoform gauze. Cultures were taken. DESCRIPTION OF PROCEDURE: The patient was brought to the operating room, placed supine, received general anesthesia, and his left upper extremity was prepped and draped in a sterile field. I made an incision longitudinally along the palpable fluctuance and pus was removed. This was a thick whitish pus. We removed it with suction. Cultures were taken. I made sure that the abscess cavity was completely unroofed. I irrigated it with warm saline and then packed it open with iodoform gauze followed by dry dressing and Kerlix wrap. He tolerated the procedure well with plans for him to go the recovery room and then return to the floor. He is receiving IV antibiotics. His packing will need to be removed tomorrow. cc: Kimberly Jones MD
[2019-06-02] MEDS ORDERED: TYLENOL PO PRN (20:52)
[2019-06-02] MEDS: ZOFRAN IV PRN (21:16)
[2019-06-03] MEDS: MORPHINE IV PRN ×2 (01:01→06:01)
[2019-06-03] MEDS: ZOSYN 3.375 GM in NS 50 ML IV SCH ×2 (03:10→09:21)
[2019-06-03] MEDS: ZOFRAN IV PRN (03:23)
[2019-06-03] MEDS: NORCO-10 PO PRN ×2 (03:23→07:33)
[2019-06-03] MEDS: PROTONIX PO SCH (06:22)
[2019-06-03 07:31] LABS: IRON SATURATION 17 %; TIBC 263 ug/dL; TOTAL IRON 46 ug/dL (53-167); UNBOUND IRON 217 ug/dL (112-346)
[2019-06-03 07:36] VITALS: BP 117/71
[2019-06-03 07:41] LABS: FERRITIN 187 ng/mL (30-400)
[2019-06-03] MEDS ORDERED: FOLIC ACID PO SCH (09:00)
--- NOTE | 2019-06-03 09:00 | PROGRESS NOTE ---
DATE: 06/03/2019 Mr. Sloan Murray is a 29-year-old white male who is now postop day 1 from incision and drainage of a soft tissue abscess involving his left upper extremity. The wound was left open. It was packed open. It was thoroughly irrigated. We will remove the packing today and the wound will have to heal by secondary intention. He should clean it with hydrogen peroxide daily for the first several days. He can shower like normal. I do not care if soap and water get in the wound and he will have to dress it because it will drain. He can return to my outpatient offices in 7 to 10 days for followup. cc: Kimberly Jones MD
[2019-06-03] MEDS: NICODERM PATCH TD SCH (09:21)
--- NOTE | 2019-06-04 10:31 | DISCHARGE SUMMARY ---
ADMISSION DATE: 06/01/2019 DISCHARGE DATE: 06/03/2019 DISPOSITION: CONSULTATION DURING THIS ADMISSION: Surgery was consulted and patient was seen by Dr. Jones. INVASIVE PROCEDURES DONE DURING THIS ADMISSION: Incision and drainage of soft tissue abscess of left upper extremity was done by Dr. Jones on 06/01/2019. IMAGING STUDIES OF SIGNIFICANCE: A chest x-ray was negative. ADMISSION DIAGNOSES: 1. Large abscess, left elbow region. 2. History of substance abuse. 3. Leukocytosis. DIAGNOSIS AT THE TIME OF DISCHARGE: 1. Sepsis secondary to skin and soft tissue infection. 2. Large left antecubital fossa cellulitis with abscess formation. 3. Intravenous drug use and abuse. 4. Clinical volume depletion. DISCHARGE MEDICATIONS: The patient to continue his home medicines includin. Bactrim 2 tablets b.i.d. 2. Ibuprofen 600 mg p.o. q.6-8 h. 1. [place] 7.5 mg written up by the surgeon. PRESENTING COMPLAINT: Abscess in the left elbow area. HISTORY OF PRESENT ILLNESS: Mr. Murray is a 29-year-old gentleman who is known to be using IV drugs. He said that he did use IV amphetamine about a week ago, but he thinks he missed his vein and then he started having some swelling. He came to the emergency room, was given a prescription for Bactrim, but then after a day the arm just got worse so he came to the emergency room where he was evaluated and admitted. HOSPITAL COURSE: Mr. Murray was admitted to the surgical floor, was started on broad-spectrum IV antibiotics. Surgery was consulted. Incision and drainage was done. The patient felt a lot better afterwards. He was evaluated this morning actually by surgery and they thought that he could be discharged and follow up with them in 7 days. He was advised to restart his home medication including the Bactrim, ibuprofen and [place] was written up for him. All the discharge instructions were discussed with him. The patient has been advised repeatedly to avoid and stay away from IV drugs. DISCHARGE VITALS: Blood pressure is 117/71, pulse of 84, respiration is 19, temperature is 97.8 degrees. The patient is saturating 100% on room air. Mr. Murray is in stable condition. Time spent for discharge is 32 minutes. cc: Tyron Wayne MD
== END 2019-06-03 10:15 | disposition home or self-care (01) | DRG 854 ==
LOC: ED 18:55 → 4N 22:44 → SUATTDRO 22:44
PROVIDERS: ATTEND Internal Medicine